=== PATIENT | male | born 1995 | race Asian ===

== ENCOUNTER 2018-02-24 14:16 | Emergency (ER) | payer OTHER ==
[2018-02-24 14:37] VITALS: BP 127/80; PULSE 100; TEMP 98; BMI 24.0
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
[2018-02-24] MEDS ORDERED: IBUPROFEN 400 MG TABLET (FP) PO ONE ×2 (15:42→15:43)
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
== END 2018-02-24 16:46 | disposition home or self-care (01) ==
LOC: JERFT 14:16
DX: M25.512 Pain in left shoulder (principal); V49.49XA Driver injured in collision with other motor vehicles in traffic accident, initial encounter; W22.11XA Striking against or struck by driver side automobile airbag, initial encounter; Y92.488 Other paved roadways as the place of occurrence of the external cause; Y93.89 Activity, other specified; Y99.8 Other external cause status
CPT/HCPCS: 73030-TC-LT-FY; 99281-25